=== PATIENT | male | born 1990 | race Caucasian/White ===

== ENCOUNTER 2018-12-05 17:26 | Emergency (ER) | payer SELFPAY ==
--- NOTE | 2018-12-05 17:37 | EDM.PDOC ---
ED HPI GENERAL MEDICAL PROBLEM - General Chief Complaint: Back Pain or Injury Stated Complaint: RIGHT SIDE BACK PAIN Time Seen by Provider: 12/05/18 17:32 - History of Present Illness INITIAL COMMENTS - FREE TEXT/NARRATIVE: HISTORY AND PHYSICAL: History of present illness: Patient is a 28-year-old white male presents status post injury to his right pelvis this is primarily posterior when he struck it on a piece of PVC pipe while sledding with his children he denies any other trauma or concern Review of systems: As per history of present illness and below otherwise all systems reviewed and negative. Past medical history: As per history of present illness and as reviewed below otherwise noncontributory. Surgical history: As per history of present illness and as reviewed below otherwise noncontributory. Social history: No reported history of drug or alcohol abuse. Family history: As per history of present illness and as reviewed below otherwise noncontributory. Physical exam: HEENT: Atraumatic, normocephalic, pupils reactive, negative for conjunctival pallor or scleral icterus, mucous membranes moist, throat clear, neck supple, nontender, trachea midline. Lungs: Clear to auscultation, breath sounds equal bilaterally, chest nontender. Heart: S1S2, regular, negative for clicks, rubs, or JVD. Abdomen: Soft, nondistended, nontender. Negative for masses or hepatosplenomegaly. Negative for costovertebral tenderness. Pelvis: Stable patient has some ecchymosis and tenderness in the region of the right posterior superior iliac crest is no crepitation Genitourinary: Deferred. Rectal: Deferred. Extremities: Atraumatic, negative for cords or calf pain. Neurovascular unremarkable. Neuro: Awake, alert, oriented. Cranial nerves II through XII unremarkable. Cerebellum unremarkable. Motor and sensory unremarkable throughout. Exam nonfocal. Diagnostics: X-ray pelvis Therapeutics: None Impression: #1 pelvic contusion efinitive disposition and diagnosis as appropriate pending reevaluation and review of above. ED ROS GENERAL - Review of Systems Review Of Systems: ROS reveals no pertinent complaints other than HPI. ED EXAM, GENERAL - Physical Exam Exam: See Below (See dictation) Course - Orders/Labs/Meds Orders: Active Orders 24 hr Category Date Time Status Pelvis 1V or 2V [CR] Stat Exams 12/05/18 17:33 Ordered Departure - Departure Time of Disposition: 17:36 Disposition: Home, Self-Care 01 Condition: Good Clinical Impression: Pelvic contusion - Discharge Information Referrals: PCP,None [Primary Care Provider] - Additional Instructions: The following information is given to patients seen in the emergency department who are being discharged to home. This information is to outline your options for follow-up care. We provide all patients seen in our emergency department with a follow-up referral. The need for follow-up, as well as the timing and circumstances, are variable depending upon the specifics of your emergency department visit. If you don't have a primary care physician on staff, we will provide you with a referral. We always advise you to contact your personal physician following an emergency department visit to inform them of the circumstance of the visit and for follow-up with them and/or the need for any referrals to a consulting specialist. The emergency department will also refer you to a specialist when appropriate. This referral assures that you have the opportunity for followup care with a specialist. All of these measure are taken in an effort to provide you with optimal care, which includes your followup. Under all circumstances we always encourage you to contact your private physician who remains a resource for coordinating your care. When calling for followup care, please make the office aware that this follow-up is from your recent emergency room visit. If for any reason you are refused follow-up, please contact the [facility] emergency department at and asked to speak to the emergency department charge nurse. Ultram is prescribed follow-up primary medical doctor as needed as discussed and return as needed as discussed - My Orders Last 24 Hours: My Active Orders 12/05/18 17:33 Pelvis 1V or 2V [CR] Stat - Assessment/Plan Last 24 Hours: My Active Orders 12/05/18 17:33 Pelvis 1V or 2V [CR] Stat
--- NOTE | 2018-12-05 18:05 | CR ---
Indication: Sledding accident, right hip injury Technique: Frontal view pelvis Comparison: None Findings: Bones: Alignment is normal. No fractures or bone lesions. Joint spaces: Unremarkable. Soft tissues: Unremarkable. Impression: Negative. Dictated by Carrol Medrano MD @ Dec 05 2018 6:02PM Signed by Dr. Carrol Medrano @ Dec 05 2018 6:04PM
== END 2018-12-05 18:33 | disposition home or self-care (01) ==
LOC: MW.ED 17:26
DX: S30.0XXA Contusion of lower back and pelvis, initial encounter (principal); W22.8XXA Striking against or struck by other objects, initial encounter
CPT/HCPCS: 72170; 72170-26; 99283